=== PATIENT | male | born 1945 | race African-American/Black ===

== ENCOUNTER → 2018-06-16 | Outpatient (CLI) | payer MEDICARE, OTHER ==
[~2018-06-16] MED LIST: ALBU90AE IH; ALBU90AE INH; APIX5TAB MT; ASPI-1158 PO; AZIL1TAB3 PO; BARIUM SULFATE 450ML ORAL SUSP ONE; BUDE6HFA INH; CARB15DR EACHEYE; CHOL100044 MT; INSU100C6 SQ; NIFE90TA34 PO; PANT40TA4 MT; POTA20TA82 MT; POTA20TA82 PO; PRAV10TA35 MT; SOTA80TA MT; SUCR1TAB MT; TAMS0.4C31 MT
== END | disposition home or self-care (01) ==
LOC: CT 09:56
PROVIDERS: ATTEND Internal Medicine Gastroenterology
DX: K57.90 Diverticulosis of intestine, part unspecified, without perforation or abscess without bleeding (principal); I10 Essential (primary) hypertension
CPT/HCPCS: 71046; 74176

== ENCOUNTER 2018-07-02 14:00 | Inpatient (IN) | payer MEDICARE, OTHER ==
[~2018-07-02] VITALS: Ht 180.3 cm; Wt 86.2 kg
[2018-07-02] MEDS ORDERED: DILTIAZEM HCL 5MG/ML 5ML VIAL IV ONE (16:30)
[2018-07-02 16:44] LABS: CHLORIDE 106 mEq/L (98-107)
[2018-07-02 16:49] LABS: BASOPHILS % 0.7 % (0.0-2.0); EOSINOPHILS % 1.8 % (0.0-5.0); HEMATOCRIT. 39.1 % (42.0-52.0); HEMOGLOBIN. 12.5 g/dL (14.0-18.0); LYMPHOCYTES % 11.4 % (20.0-50.0); MEAN CORPUSCULAR HEMOGLOBIN 26.7 pg (28.0-32.0); MEAN CORPUSCULAR VOLUME 83.4 fL (80.0-94.0); MEAN PLATELET VOLUME 9.7 fl (7.4-10.4); MONOCYTES % 13.7 % (2.0-8.0); NEUTROPHILS % 72.4 % (40.0-76.0); PLATELET 209 x1000/uL (130-400); RED BLOOD CELL COUNT 4.68 mill/uL (4.7-6.1); RED CELL DISTRIBUTION WIDTH 16.2 % (11.6-14.6)
[2018-07-02] MEDS ORDERED: METOCLOPRAMIDE HCL 10MG/2ML VIAL IV ONE (17:30)
[2018-07-02] MEDS ORDERED: METOPROLOL TARTRATE 5MG/5ML VIAL IV ONE ×2 (17:45→18:00)
[2018-07-02] MEDS ORDERED: HYDROMORPHONE HCL/PF 2MG/ML CPJ IV PRN (18:00)
[2018-07-02] MEDS ORDERED: DEXTROSE 50% WATER 50ML SYRINGE IV ONE (18:00)
[2018-07-02] MEDS ORDERED: NA PHOS,M-B/NA PHOS,DI-BA ENEMA 118ML PR PRN (18:00)
[2018-07-02] MEDS ORDERED: GUAIFENESIN 200MG/10ML SUGAR FREE UDC PO PRN (18:00)
[2018-07-02] MEDS ORDERED: METOPROLOL TARTRATE 50MG TABLET PO ONE (18:00)
[2018-07-02] MEDS ORDERED: CLONIDINE 0.1MG TABLET PO PRN (18:00)
[2018-07-02] MEDS ORDERED: IPRATROPIUM/ALBUTEROL 0.5-3(2.5)MG/3ML NEB INH PRN (18:00)
[2018-07-02] MEDS ORDERED: DOCUSATE SODIUM 100MG CAPSULE PO PRN (18:00)
[2018-07-02] MEDS ORDERED: MAGNESIUM/ALUMINUM HYDROXIDE/SIMETHICONE 30ML UDC PO PRN (18:00)
[2018-07-02 18:14] LABS: CHLORIDE 109 mEq/L (98-107)
[2018-07-02] MEDS ORDERED: DILTIAZEM HCL 125 MG in DEXT 5% WATER 100 ML IV ONE (18:15)
[2018-07-02] MEDS ORDERED: DILTIAZEM HCL 125 MG in DEXT 5% WATER 100 ML IV NR (18:15)
[2018-07-02] MEDS: LORAZEPAM 2MG/ML CPJ IV PRN (19:20)
[2018-07-03] VITALS (89 sets, daily range): BP systolic 56–208; BP diastolic 19–128
[2018-07-03] MEDS ORDERED: ENOXAPARIN 40MG/0.4ML SYR SUBCUT NR (00:30)
[2018-07-03] MEDS ORDERED: AMIODARONE HCL 900 MG in DEXT 5% WATER 482 ML IV PRN ×2 (03:15→20:30)
[2018-07-03] MEDS ORDERED: DEXTROSE 50% WATER 50ML SYRINGE IV PRN (03:15)
[2018-07-03 05:45] LABS: HEMATOCRIT. 36.8 % (42.0-52.0); MEAN CORPUSCULAR HEMOGLOBIN 26.9 pg (28.0-32.0); MEAN CORPUSCULAR VOLUME 82.6 fL (80.0-94.0); MEAN PLATELET VOLUME 9.5 fl (7.4-10.4); PLATELET 170 x1000/uL (130-400); RED BLOOD CELL COUNT 4.45 mill/uL (4.7-6.1)
[2018-07-03 06:06] LABS: CHLORIDE 106 mEq/L (98-107)
[2018-07-03 06:16] LABS: LDL CHOLESTEROL 49 mg/dL (5-100)
[2018-07-03] MEDS ORDERED: TAMS0.4C31 MT (06:17)
[2018-07-03] MEDS ORDERED: POTA20TA82 PO (06:17)
[2018-07-03] MEDS ORDERED: ALBU90AE INH (06:17)
[2018-07-03] MEDS ORDERED: BUDE6HFA INH (06:17)
[2018-07-03] MEDS ORDERED: CARB15DR EACHEYE (06:17)
[2018-07-03] MEDS ORDERED: PRAV10TA35 MT (06:17)
[2018-07-03] MEDS ORDERED: INSU100C6 SQ (06:17)
[2018-07-03] MEDS ORDERED: CHOL100044 MT (06:17)
[2018-07-03] MEDS ORDERED: ASPI-1158 PO (06:17)
[2018-07-03] MEDS ORDERED: PANT40TA4 MT (06:17)
[2018-07-03] MEDS ORDERED: POTA20TA82 MT (06:17)
[2018-07-03] MEDS ORDERED: AZIL1TAB3 PO (06:17)
[2018-07-03] MEDS ORDERED: SUCR1TAB MT (06:17)
[2018-07-03] MEDS ORDERED: APIX5TAB MT (06:17)
[2018-07-03] MEDS ORDERED: SOTA80TA MT (06:17)
[2018-07-03] MEDS ORDERED: NIFE90TA34 PO (06:17)
[2018-07-03 06:18] LABS: HDL CHOLESTEROL 34 mg/dL (40-59); T4 FREE 1.28 ng/dL (0.76-1.46)
[2018-07-03] MEDS: ACETAMINOPHEN 325MG TABLET PO PRN (06:25)
[2018-07-03] MEDS: BLOOD SUGAR DIAGNOSTIC STRIP TEST SCH ×4 (07:50→21:33)
[2018-07-03 08:44] LABS: PLATELET ESTIMATE NORMAL
[2018-07-03] MEDS ORDERED: DIGOXIN 500MCG/2ML AMP IV NR ×2 (08:45→19:00)
[2018-07-03] MEDS ORDERED: DEXT 5% IV NR (09:00)
[2018-07-03] MEDS ORDERED: AMIODARONE HCL IV NR (09:00)
[2018-07-03] MEDS ORDERED: ASPIRIN 81MG EC TABLET PO SCH (09:00)
[2018-07-03] MEDS ORDERED: WATER IV NR (09:00)
[2018-07-03] MEDS: METOPROLOL TARTRATE 25MG TABLET PO SCH ×2 (09:15→20:33)
[2018-07-03] MEDS: FUROSEMIDE 40MG/4ML VIAL IV SCH (09:16)
[2018-07-03] MEDS: INSULIN LISPRO 100 UNITS/ML SUBCUT SCH ×4 (09:17→21:37)
[2018-07-03] MEDS: BUDESONIDE 0.5MG/2ML NEB HHN SCH ×2 (14:16→20:40)
[2018-07-03] MEDS: IPRATROPIUM BROMIDE (0.02%) 0.5MG/2.5ML NEB HHN SCH ×2 (14:16→20:40)
[2018-07-03 15:42] LABS: CREATINE KINASE 107 IU/L (39-308)
[2018-07-03 15:43] LABS: CREATINE KINASE MB FRACTION 1.8 ng/mL (0.5-3.6)
[2018-07-03] MEDS: DILTIAZEM HCL 125 MG in DEXT 5% WATER 100 ML IV PRN (15:43)
[2018-07-03] MEDS: APIXABAN 5 MG TABLET PO SCH (18:08)
[2018-07-03] MEDS: ONDANSETRON HCL 4MG/2ML INJ IV PRN (20:33)
[2018-07-03 22:41] LABS: CREATINE KINASE 128 IU/L (39-308)
[2018-07-03] MEDS ORDERED: ENOXAPARIN 40MG/0.4ML SYR SUBCUT SCH (23:00)
[2018-07-03] MEDS: LORAZEPAM 2MG/ML CPJ IV PRN (23:15)
[2018-07-04] VITALS (86 sets, daily range): BP systolic 95–188; BP diastolic 45–129
[2018-07-04] MEDS: DILTIAZEM HCL 125 MG in DEXT 5% WATER 100 ML IV PRN ×3 (02:21→23:09)
[2018-07-04] MEDS: IPRATROPIUM BROMIDE (0.02%) 0.5MG/2.5ML NEB HHN SCH ×4 (02:49→20:25)
[2018-07-04 06:06] LABS: CREATINE KINASE 104 IU/L (39-308)
[2018-07-04 06:07] LABS: CREATINE KINASE MB FRACTION 2.1 ng/mL (0.5-3.6)
[2018-07-04] MEDS: BLOOD SUGAR DIAGNOSTIC STRIP TEST SCH ×4 (08:39→21:00)
[2018-07-04] MEDS: INSULIN LISPRO 100 UNITS/ML SUBCUT SCH ×4 (08:44→21:00)
[2018-07-04] MEDS: APIXABAN 5 MG TABLET PO SCH ×2 (09:33→18:07)
[2018-07-04] MEDS: TAMSULOSIN HCL 0.4MG SR CAPSULE PO SCH (09:33)
[2018-07-04] MEDS: FUROSEMIDE 40MG/4ML VIAL IV SCH (09:34)
[2018-07-04] MEDS: METOPROLOL TARTRATE 25MG TABLET PO SCH (09:34)
[2018-07-04] MEDS ORDERED: INSULIN LISPRO 100 UNITS/ML SUBCUT ONE (14:00)
[2018-07-04] MEDS: PANTOPRAZOLE SODIUM 40 MG/VIAL IV SCH (14:06)
[2018-07-04] MEDS: BUDESONIDE 0.5MG/2ML NEB HHN SCH ×2 (15:42→20:26)
[2018-07-04] MEDS ORDERED: AMIODARONE HCL 200 MG TABLET PO SCH (19:15)
[2018-07-04] MEDS: METOPROLOL TARTRATE 50MG TABLET PO SCH (21:00)
[2018-07-04] MEDS: HYDROCODONE/ACETAMINOPHEN 5/325MG TABLET PO PRN (23:08)
[2018-07-05] VITALS (54 sets, daily range): BP systolic 77–172; BP diastolic 26–135
[2018-07-05] MEDS: IPRATROPIUM BROMIDE (0.02%) 0.5MG/2.5ML NEB HHN SCH ×4 (02:19→19:44)
[2018-07-05] MEDS: ACETAMINOPHEN 325MG TABLET PO PRN (04:40)
[2018-07-05] MEDS: DIPHENHYDRAMINE 50MG/ML VIAL IV PRN (05:53)
[2018-07-05 06:07] LABS: BASOPHILS % 0.8 % (0.0-2.0); EOSINOPHILS % 1.1 % (0.0-5.0); HEMATOCRIT. 42.4 % (42.0-52.0); HEMOGLOBIN. 13.6 g/dL (14.0-18.0); LYMPHOCYTES % 10.6 % (20.0-50.0); MEAN CORPUSCULAR HEMOGLOBIN 26.7 pg (28.0-32.0); MEAN CORPUSCULAR VOLUME 83.1 fL (80.0-94.0); MEAN PLATELET VOLUME 9.5 fl (7.4-10.4); MONOCYTES % 13.9 % (2.0-8.0); NEUTROPHILS % 73.6 % (40.0-76.0); PLATELET 187 x1000/uL (130-400); RED CELL DISTRIBUTION WIDTH 16.2 % (11.6-14.6)
[2018-07-05 06:14] LABS: CHLORIDE 99 mEq/L (98-107)
[2018-07-05] MEDS: AMIODARONE HCL 200 MG TABLET PO SCH ×2 (06:41→22:18)
[2018-07-05] MEDS: DILTIAZEM HCL 125 MG in DEXT 5% WATER 100 ML IV PRN (07:30)
[2018-07-05] MEDS: INSULIN LISPRO 100 UNITS/ML SUBCUT SCH ×4 (08:20→21:00)
[2018-07-05] MEDS: BLOOD SUGAR DIAGNOSTIC STRIP TEST SCH ×4 (08:45→21:00)
[2018-07-05] MEDS: METOPROLOL TARTRATE 50MG TABLET PO SCH ×2 (09:09→22:18)
[2018-07-05] MEDS: TAMSULOSIN HCL 0.4MG SR CAPSULE PO SCH (09:09)
[2018-07-05] MEDS: APIXABAN 5 MG TABLET PO SCH ×2 (09:09→18:12)
[2018-07-05] MEDS: PANTOPRAZOLE SODIUM 40 MG/VIAL IV SCH (09:09)
[2018-07-05] MEDS: FUROSEMIDE 40MG/4ML VIAL IV SCH (09:09)
[2018-07-05] MEDS: BUDESONIDE 0.5MG/2ML NEB HHN SCH ×2 (09:13→19:44)
[2018-07-05] MEDS ORDERED: AMIODARONE HCL 900 MG in DEXT 5% WATER 482 ML IV SCH (10:00)
[2018-07-06] VITALS (79 sets, daily range): BP systolic 50–167; BP diastolic 30–117
[2018-07-06] MEDS: DIPHENHYDRAMINE 50MG/ML VIAL IV PRN (00:24)
[2018-07-06] MEDS: HYDROCODONE/ACETAMINOPHEN 5/325MG TABLET PO PRN (00:25)
[2018-07-06] MEDS: IPRATROPIUM BROMIDE (0.02%) 0.5MG/2.5ML NEB HHN SCH ×4 (02:22→21:21)
[2018-07-06 06:05] LABS: HEMATOCRIT. 39.9 % (42.0-52.0); HEMOGLOBIN. 12.9 g/dL (14.0-18.0); MEAN CORPUSCULAR HEMOGLOBIN 26.5 pg (28.0-32.0); MEAN CORPUSCULAR VOLUME 82.3 fL (80.0-94.0); MEAN PLATELET VOLUME 9.2 fl (7.4-10.4); PLATELET 170 x1000/uL (130-400); RED BLOOD CELL COUNT 4.85 mill/uL (4.7-6.1); RED CELL DISTRIBUTION WIDTH 15.7 % (11.6-14.6)
[2018-07-06 06:06] LABS: INR 1.3; PARTIAL THROMBOPLASTIN TIME 32.7 sec (23.4-31.0); PROTHROMBIN TIME 13.2 sec (9.6-11.0)
[2018-07-06 06:16] LABS: CHLORIDE 100 mEq/L (98-107)
[2018-07-06 06:32] LABS: PHOSPHORUS 3.8 mg/dL (2.5-4.9)
[2018-07-06] MEDS: DILTIAZEM HCL 125 MG in DEXT 5% WATER 100 ML IV PRN (07:28)
[2018-07-06 08:09] LABS: PLATELET ESTIMATE NORMAL
[2018-07-06] MEDS: INSULIN LISPRO 100 UNITS/ML SUBCUT SCH ×4 (09:00→21:34)
[2018-07-06] MEDS: BLOOD SUGAR DIAGNOSTIC STRIP TEST SCH ×4 (09:00→21:30)
[2018-07-06] MEDS: APIXABAN 5 MG TABLET PO SCH ×2 (09:30→17:44)
[2018-07-06] MEDS: PANTOPRAZOLE SODIUM 40 MG/VIAL IV SCH (09:30)
[2018-07-06] MEDS: TAMSULOSIN HCL 0.4MG SR CAPSULE PO SCH (09:30)
[2018-07-06] MEDS: AMIODARONE HCL 200 MG TABLET PO SCH ×2 (09:30→21:00)
[2018-07-06] MEDS ORDERED: POTASSIUM CHLORIDE 20MEQ TABLET SR PO NR (11:45)
[2018-07-06] MEDS: METOPROLOL TARTRATE 50MG TABLET PO SCH ×2 (14:25→21:30)
[2018-07-06] MEDS: ONDANSETRON HCL 4MG/2ML INJ IV PRN (22:42)
[2018-07-07] VITALS (40 sets, daily range): BP systolic 130–184; BP diastolic 72–133
[2018-07-07 06:14] LABS: HEMATOCRIT. 37.9 % (42.0-52.0); HEMOGLOBIN. 12.5 g/dL (14.0-18.0); MEAN CORPUSCULAR HEMOGLOBIN 27.2 pg (28.0-32.0); MEAN CORPUSCULAR VOLUME 82.6 fL (80.0-94.0); MEAN PLATELET VOLUME 9.2 fl (7.4-10.4); PLATELET 173 x1000/uL (130-400); RED BLOOD CELL COUNT 4.59 mill/uL (4.7-6.1)
[2018-07-07] MEDS: METOPROLOL TARTRATE 50MG TABLET PO SCH (06:21)
[2018-07-07 07:26] LABS: PLATELET ESTIMATE NORMAL
[2018-07-07] MEDS: BLOOD SUGAR DIAGNOSTIC STRIP TEST SCH ×4 (07:50→21:11)
[2018-07-07] MEDS: INSULIN LISPRO 100 UNITS/ML SUBCUT SCH ×4 (08:38→21:03)
[2018-07-07] MEDS: PANTOPRAZOLE SODIUM 40 MG/VIAL IV SCH (09:19)
[2018-07-07] MEDS: AMIODARONE HCL 200 MG TABLET PO SCH ×2 (09:19→21:01)
[2018-07-07] MEDS: APIXABAN 5 MG TABLET PO SCH ×2 (09:19→17:30)
[2018-07-07] MEDS: TAMSULOSIN HCL 0.4MG SR CAPSULE PO SCH (09:19)
[2018-07-07] MEDS: IPRATROPIUM BROMIDE (0.02%) 0.5MG/2.5ML NEB HHN SCH ×3 (09:27→21:13)
[2018-07-07] MEDS: LORAZEPAM 2MG/ML CPJ IV PRN (10:09)
[2018-07-07] MEDS: METOPROLOL TARTRATE 25MG TABLET PO SCH ×2 (13:23→21:02)
[2018-07-07] MEDS ORDERED: BUDE6HFA INH (17:52)
[2018-07-07] MEDS ORDERED: ALBU90AE IH (17:52)
[2018-07-08] VITALS (25 sets, daily range): BP systolic 116–171; BP diastolic 72–111
[2018-07-08] MEDS: IPRATROPIUM BROMIDE (0.02%) 0.5MG/2.5ML NEB HHN SCH ×3 (01:52→14:00)
[2018-07-08] MEDS: METOPROLOL TARTRATE 25MG TABLET PO SCH ×2 (06:28→15:15)
[2018-07-08 06:36] LABS: HEMATOCRIT. 38.6 % (42.0-52.0); HEMOGLOBIN. 12.5 g/dL (14.0-18.0); MEAN CORPUSCULAR HEMOGLOBIN 26.9 pg (28.0-32.0); MEAN PLATELET VOLUME 9.1 fl (7.4-10.4); PLATELET 152 x1000/uL (130-400); RED BLOOD CELL COUNT 4.64 mill/uL (4.7-6.1)
[2018-07-08 06:42] LABS: CHLORIDE 101 mEq/L (98-107)
[2018-07-08 08:10] LABS: PLATELET ESTIMATE NORMAL
[2018-07-08] MEDS: PANTOPRAZOLE SODIUM 40 MG/VIAL IV SCH (08:19)
[2018-07-08] MEDS: TAMSULOSIN HCL 0.4MG SR CAPSULE PO SCH (08:20)
[2018-07-08] MEDS: APIXABAN 5 MG TABLET PO SCH ×2 (08:21→17:52)
[2018-07-08] MEDS: AMIODARONE HCL 200 MG TABLET PO SCH (08:22)
[2018-07-08] MEDS: BLOOD SUGAR DIAGNOSTIC STRIP TEST SCH ×2 (08:22→17:48)
[2018-07-08] MEDS: INSULIN LISPRO 100 UNITS/ML SUBCUT SCH ×3 (08:24→17:53)
[2018-07-09] MEDS ORDERED: FAMOTIDINE 20MG TABLET PO SCH (09:00)
== END 2018-07-08 18:20 | disposition home or self-care (01) | DRG 308 ==
LOC: ER 14:00 → CVICU 17:50 → EDBEDREQ 17:57 → EDBEDREQSVC 18:20 → EDBEDREQTM 19:39 → EDBEDREQSVC 19:39 → ENRESERV 20:04 → CANRESERV 20:04 → EDBEDREQSVC 07-03 00:19 → EDBEDREQTM 07-03 00:19 → EDBEDREQDT 07-03 00:19 → ENRESERV 07-03 00:36 → 3WST 07-08 11:59
PROVIDERS: ADMIT Internal Medicine; ATTEND Internal Medicine
PROC: 5A2204Z Restoration of Cardiac Rhythm, Single (ICD-10-PCS; principal; 2018-07-06)
DX: I48.1 Persistent atrial fibrillation (principal); J96.00 Acute respiratory failure, unspecified whether with hypoxia or hypercapnia; I48.4 Atypical atrial flutter; I11.0 Hypertensive heart disease with heart failure; I50.9 Heart failure, unspecified; I25.10 Atherosclerotic heart disease of native coronary artery without angina pectoris; E11.9 Type 2 diabetes mellitus without complications; J44.9 Chronic obstructive pulmonary disease, unspecified; I27.20 Pulmonary hypertension, unspecified; N40.0 Benign prostatic hyperplasia without lower urinary tract symptoms; Z53.9 Procedure and treatment not carried out, unspecified reason; Z96.41 Presence of insulin pump (external) (internal); I49.5 Sick sinus syndrome; K57.90 Diverticulosis of intestine, part unspecified, without perforation or abscess without bleeding; I08.1 Rheumatic disorders of both mitral and tricuspid valves; I48.2 Chronic atrial fibrillation; H54.62 Unqualified visual loss, left eye, normal vision right eye; N28.9 Disorder of kidney and ureter, unspecified; Z79.01 Long term (current) use of anticoagulants; Z79.4 Long term (current) use of insulin; Z87.891 Personal history of nicotine dependence; Z95.0 Presence of cardiac pacemaker
CPT/HCPCS: 36415; 71045; 80048; 80061; 82550; 82553; 82962; 83036; 83735; 83880; 84100; 84439; 84443; 84484; 85379; 93005; 93306; 94640; 96365; 96372; 96375; 99285; C9113; J0282; J1160; J1200; J1650; J1815; J1940; J2060; J2405; J2765; J3490; J7040; J7050; J7060; J7626